=== PATIENT | female | born 1965 | race Caucasian/White ===

== ENCOUNTER 2022-04-08 18:28 | Inpatient (IN) | payer MEDICAID ==
[2022-04-08 19:24] LABS: CORONAVIRUS COVID-19 NAA NEGATIVE (NEGATIVE); INFLUENZA A NAA NEGATIVE (NEGATIVE); INFLUENZA B NAA NEGATIVE (NEGATIVE)
[2022-04-08] MEDS ORDERED: Sodium Chloride 0.9% 2.5 ML Syringe FLUSH PRN (19:34)
[2022-04-08] MEDS ORDERED: Ketorolac 30 MG/ML SDV IVPUSH STA (19:34)
[2022-04-08] MEDS ORDERED: Sodium Chloride 0.9% 10 ML Syringe FLUSH PRN (19:34)
[2022-04-08] MEDS ORDERED: Sodium Chloride 0.9% 1,000 ML IV STA ×2 (19:34→21:37)
[2022-04-08] MEDS ORDERED: Acetaminophen 500 MG Tab PO STA (20:17)
[2022-04-08] MEDS ORDERED: Piperacillin/Tazobactam 3.375 GM in Sodium Chloride 0.9% 50 ML IV STA (20:28)
[2022-04-08] MEDS ORDERED: Magnesium Sulfate/Water 2 GM in Premix Bag 1 BAG IV STA (20:52)
[2022-04-08 21:17] LABS: CARBON DIOXIDE,CO2 24.4 mmol/L (21.0-32.0)
[2022-04-08 21:22] LABS: POTASSIUM,K 2.4 mmol/L (3.5-5.1)
[2022-04-08] MEDS ORDERED: Potassium Chloride 20 MEQ Tab.ER PO STA (21:25)
[2022-04-08] MEDS ORDERED: Potassium Chloride 20 MEQ in Premix Bag 1 BAG IV STA (21:26)
[2022-04-08] MEDS ORDERED: Iopamidol 755 MG/ML 500 ML Multipack Bottle IVPUSH STA (22:16)
[2022-04-08] MEDS ORDERED: Sodium Chloride 0.9% 1,000 ML IV SCH (23:30)
[2022-04-09] MEDS ORDERED: Sodium Chloride 0.9% 250 ML IV SCH (00:30)
[2022-04-09] MEDS ORDERED: Lactated Ringers 1,000 ML IV SCH (04:45)
[2022-04-09] MEDS ORDERED: cefTRIAXone 1 GM in Sodium Chloride 0.9% 50 ML IV SCH (05:00)
[2022-04-09] MEDS ORDERED: Azithromycin 500 MG in Sodium Chloride 0.9% 250 ML IV SCH (05:30)
[2022-04-09 06:16] LABS: CARBON DIOXIDE,CO2 24.4 mmol/L (21.0-32.0); POTASSIUM,K 3.4 mmol/L (3.5-5.1)
[2022-04-09] MEDS ORDERED: Acetaminophen 325 MG Tab PO PRN (08:11)
[2022-04-09] MEDS ORDERED: Docusate Sodium 100 MG Cap PO PRN (08:11)
[2022-04-09] MEDS ORDERED: Sodium Chloride 0.9% 2.5 ML Syringe FLUSH PRN (08:11)
[2022-04-09] MEDS ORDERED: Ondansetron 4 MG/2 ML SDV IVPUSH PRN (08:11)
[2022-04-09] MEDS ORDERED: Sodium Chloride 0.9% 10 ML Syringe FLUSH PRN (08:11)
[2022-04-09] MEDS ORDERED: Albuterol/Ipratropium 3.0-0.5 MG/3 ML Neb Soln NEB PRN (08:11)
[2022-04-09] MEDS ORDERED: Enoxaparin 40 MG/0.4 ML Syringe SUBCUT SCH (08:15)
[2022-04-09] MEDS ORDERED: oxyCODONE 5 MG Tab PO PRN (08:50)
[2022-04-09] MEDS ORDERED: Morphine 4 MG/ML Syringe IVPUSH PRN (08:50)
[2022-04-09] MEDS ORDERED: Ketorolac 30 MG/ML SDV IVPUSH ONE (08:51)
[2022-04-09] MEDS ORDERED: Nicotine 7 MG/24 Hr Patch TRDERM SCH (09:15)
[2022-04-09] MEDS ORDERED: Omeprazole 20 MG Cap.CR PO SCH (21:00)
[2022-04-09] MEDS ORDERED: ClonazePAM 0.5 MG Tab PO SCH (21:00)
[2022-04-09] MEDS ORDERED: valACYclovir 500 MG Tab PO SCH (21:00)
== END 2022-04-09 11:44 | disposition home or self-care (01) | DRG 194 ==
LOC: MW.ED 18:28 → MW.MS 23:26
PROVIDERS: ADMIT Internal Medicine; ATTEND Internal Medicine
DX: J18.9 Pneumonia, unspecified organism (principal); Z68.1 Body mass index [BMI] 19.9 or less, adult; F17.200 Nicotine dependence, unspecified, uncomplicated; F41.9 Anxiety disorder, unspecified; F32.A Depression, unspecified; R63.4 Abnormal weight loss; E87.6 Hypokalemia; R91.1 Solitary pulmonary nodule; Z20.822 Contact with and (suspected) exposure to COVID-19; F17.210 Nicotine dependence, cigarettes, uncomplicated; E83.42 Hypomagnesemia; Z79.899 Other long term (current) drug therapy; Z59.01 Sheltered homelessness
CPT/HCPCS: 0240U; 36415; 70491; 70491-26; 71045; 71045-26; 71275; 71275-26; 80048; 80053; 80202; 80305-QW; 81001; 83605; 83735; 84443; 85025; 85610; 86308; 87040; 87389; 87651-QW; 93005; 96361; 96365; 96366; 96367; 96368; 96375; 99221; 99284-25; A9270-GY; J0456; J0696; J1650; J1885; J2270; J2543; J3370; J3475; J3480; J3490; J7030; J7050; J7120; Q9967

== ENCOUNTER 2022-04-24 11:35 | Emergency (ER) | payer BC, MEDICAID ==
[2022-04-24] MEDS ORDERED: Morphine 4 MG/ML Syringe IVPUSH ONE (12:52)
[2022-04-24] MEDS ORDERED: Acetaminophen 325 MG Tab PO ONE (12:52)
[2022-04-24] MEDS ORDERED: Sodium Chloride 0.9% 10 ML Syringe FLUSH PRN (12:52)
[2022-04-24] MEDS ORDERED: Sodium Chloride 0.9% 2.5 ML Syringe FLUSH PRN (12:52)
[2022-04-24] MEDS ORDERED: Lactated Ringers 1,000 ML IV SCH (13:00)
[2022-04-24 13:52] LABS: BLOOD UREA NITROGEN,BUN 9 mg/dL (7.0-18.0); CARBON DIOXIDE,CO2 25.5 mmol/L (21.0-32.0); CHLORIDE,CL 104 mmol/L (98-107); GLUCOSE RANDOM 103 mg/dL (74-106); POTASSIUM,K 4.4 mmol/L (3.5-5.1); SODIUM,NA 139 mmol/L (136-145)
[2022-04-24 13:56] LABS: ESTIMATED GFR 100 mL/min (>60)
[2022-04-24 14:20] LABS: CORONAVIRUS COVID-19 NAA NEGATIVE (NEGATIVE); INFLUENZA A NAA NEGATIVE (NEGATIVE); INFLUENZA B NAA NEGATIVE (NEGATIVE); RESPIRATORY SYNCYTIAL VIR NAA NEGATIVE (NEGATIVE)
[2022-04-24] MEDS ORDERED: Lidocaine 5% 700 MG Patch TOP ONE (15:13)
== END 2022-04-24 16:06 | disposition home or self-care (01) ==
LOC: MW.ED 11:35
DX: R07.89 Other chest pain (principal); Z72.0 Tobacco use; Z79.899 Other long term (current) drug therapy; Z20.822 Contact with and (suspected) exposure to COVID-19
CPT/HCPCS: 0241U; 36415; 71045; 80053; 83605; 83735; 84484; 85025; 85379; 93005; 96361; 96374; 99285; A9270; J2270; J3490; J7120; 93010; 99284

== ENCOUNTER 2022-06-18 18:53 | Emergency (ER) | payer BC, MEDICAID ==
[2022-06-18] MEDS ORDERED: HYDROmorphone 1 MG/ML Syringe IVPUSH ONE (19:20)
[2022-06-18] MEDS ORDERED: Sodium Chloride 0.9% 1,000 ML IV ONE (19:20)
[2022-06-18] MEDS ORDERED: Prochlorperazine 10 MG/2 ML SDV IVPUSH ONE (19:20)
[2022-06-18] MEDS ORDERED: Pantoprazole 40 MG in Sodium Chloride 0.9% 10 ML IVPUSH ONE (19:22)
[2022-06-18 20:32] LABS: BLOOD UREA NITROGEN,BUN 14 mg/dL (7.0-18.0); CARBON DIOXIDE,CO2 27.8 mmol/L (21.0-32.0); CHLORIDE,CL 104 mmol/L (98-107); GLUCOSE RANDOM 112 mg/dL (74-106); LIPASE 71 U/L (73-393); SODIUM,NA 141 mmol/L (136-145)
[2022-06-18 20:33] LABS: ESTIMATED GFR 100 mL/min (>60)
[2022-06-18] MEDS ORDERED: Iopamidol 755 MG/ML 500 ML Multipack Bottle IVPUSH STA (21:00)
== END 2022-06-18 22:19 | disposition home or self-care (01) ==
LOC: MW.ED 18:53
DX: K52.9 Noninfective gastroenteritis and colitis, unspecified (principal); E86.0 Dehydration; R11.2 Nausea with vomiting, unspecified
CPT/HCPCS: 36415; 74177; 80053; 81003; 83605; 83690; 83735; 84100; 84484; 85025; 85610; 93005; 96361; 96374; 96375; 99284; C9113; J0780; J1170; J3490; J7030; Q9967; 93010

== ENCOUNTER 2024-02-13 15:04 | Emergency (ER) | payer MEDICAID ==
[2024-02-13 16:36] LABS: APPEARANCE,URINE CLEAR; COLOR,URINE ORANGE; GLUCOSE,URINE 250 mg/dL (NEGATIVE); KETONES,URINE TRACE mg/dL (NEGATIVE); LEUKOCYTE ESTERASE,URINE TRACE (NEGATIVE); NITRITE,URINE POSITIVE (NEGATIVE); OCCULT BLOOD,URINE NEGATIVE (NEGATIVE); PROTEIN,URINE 100 mg/dL (NEGATIVE); UROBILINOGEN,URINE >=8.0 EU/dL (<2.0)
[2024-02-13 16:41] LABS: BILIRUBIN,URINE SMALL (NEGATIVE)
[2024-02-13 16:47] LABS: BACTERIA,URINE RARE (NEGATIVE); EPITHELIAL CELLS,URINE RARE (NONE-FEW); RBC,URINE 0-1 (0-2/HPF)
[2024-02-13] MEDS: traMADol 50 MG Tab PO ONE (17:20)
[2024-02-13 18:36] LABS: CANDIDA DNA PROBE NEGATIVE (NEGATIVE); GARDNERELLA DNA PROBE NEGATIVE (NEGATIVE); TRICHOMONAS DNA PROBE NEGATIVE (NEGATIVE)
[2024-02-13] MEDS: Fluconazole 150 MG Tab PO ONE (19:12)
[2024-02-13] MEDS: Cefdinir 300 MG Cap PO ONE (19:13)
== END 2024-02-13 19:13 | disposition home or self-care (01) ==
LOC: MW.ED 15:04
DX: N39.0 Urinary tract infection, site not specified (principal); Z90.49 Acquired absence of other specified parts of digestive tract; Z79.899 Other long term (current) drug therapy; Z75.8 Other problems related to medical facilities and other health care
CPT/HCPCS: 81001; 87086; 87480; 87510; 87660; 99284; A9270